=== PATIENT | male | born 1955 | race Caucasian/White ===

== ENCOUNTER 2019-09-04 10:50 | Day surgery (SDC) | payer BC ==
[~2019-09-04 10:50] MED LIST: Betamethasone Acetate/Betamethasone Sod Phosphate 30 MG/5 ML MDV EPIDUR ONE; Iopamidol 200-M 10 ML vial ITHECAL ONE; Lidocaine 2% 5 ML SDV INJECT ONE; Ropivacaine 0.5% 5 MG/ML 30 ML SDV INJECT ONE
--- NOTE | 2019-09-04 19:12 | OR ---
SURGEON: Claudia Peacock D.O. DATE OF PROCEDURE: 09/04/2019 PRIMARY SURGEON: Claudia Peacock D.O. SILK SCREEN PRINTER MACHINE: OR staff present: 1. David Gaston RN. 2. Momo Clemente RN. 3. Temi Melendez, RT. PREOPERATIVE DIAGNOSES: 1. L5-S1 degenerative disk disease. 2. L5-S1 spondylolisthesis. 3. L5-S1 right lower extremity radiculopathy. POSTOPERATIVE DIAGNOSES: 1. L5-S1 degenerative disk disease. 2. L5-S1 spondylolisthesis. 3. L5-S1 right lower extremity radiculopathy. PROCEDURES PERFORMED: 1. Right transforaminal epidural steroid injection at L5. 2. Fluoroscopic guidance for needle placement. 3. Local with oral Valium for sedation. SCREENING QUESTIONS: The patient answered "no" to all of the following questions: 1. Are you allergic to iodine, Betadine or latex? 2. Do you have a bleeding disorder? 3. Do you have any joint replacements, heart valve replacements, or a pacemaker? 4. Are you allergic to anti-inflammatories or blood thinners? 5. Do you have any current local or systemic infections? DESCRIPTION OF PROCEDURE: The patient had the procedure thoroughly explained including risks, benefits and alternatives. Consent was signed in my clinic indicating understanding and willingness to proceed. The patient presented to [facility] [place] where the patient was escorted to the dressing room to disrobe and change into a hospital gown. Preoperative vital signs were taken and stable. The patient reported that Valium was taken prior to the procedure. The patient was brought to the procedure room and placed in the prone position on the table. A pillow was placed under the abdomen in order to flatten the lumbar lordosis. The back was prepped with ChloraPrep and sterilely draped. All personnel in the operating room were dressed in appropriate attire including surgical scrubs, head and shoe covers. This was to ensure sterility while in the treatment room. During the time fluoroscopy was in use, all personnel in the operating room wore lead rasmussen with thyroid collars. Sterile technique was used during the procedure. The fluoroscope was placed for the L5 transforaminal epidural steroid injection. There was no sign of infection at the skin site for needle insertion. The skin was anesthetized with 2% lidocaine with a 27 gauge 1-1/2 inch needle. Then a 22 gauge 3-1/2 inch spinal needle, advanced to the L5. Under direct fluoroscopic guidance needle position was verified in three views; AP, oblique and lateral, with 0.2 cubic centimeters increments of Isovue-200 dye. No intravascular flow pattern was observed under live fluoroscopy. Then 12 milligrams of Celestone was slowly injected after negative aspiration of heme, cerebrospinal fluid and no paresthesias were noted. The needle was cleared prior to removal from the skin. No adverse reactions were noted. The patient was brought to the recovery room awake and in good condition by my staff. The patient was monitored and discharge instructions were given after a brief stay in the recovery area. Both oral and written discharge and follow up instructions were given. The patient will follow up in the clinic in 3-4 weeks post procedure to evaluate the efficacy. The patient verbalized understanding including understanding of those signs and symptoms that would require emergency care and knows how to contact the office if there are any problems or questions in the meantime. PREOPERATIVE PAIN: 4 to 7 out of 10. POSTOPERATIVE PAIN: 1 to 2 out of 10. FOLLOWUP: Follow up in the Pain Clinic in 1 month. JAMAAL / HAKAN /[id number] WINTER
== END 2019-09-04 14:25 | disposition home or self-care (01) ==
LOC: MW.SDS 10:50
PROVIDERS: ATTEND Anesthesiology
DX: M51.17 Intervertebral disc disorders with radiculopathy, lumbosacral region (principal); M43.17 Spondylolisthesis, lumbosacral region
CPT/HCPCS: 64483; J0702; 62323